=== PATIENT | female | born 1985 | race Caucasian/White ===

== ENCOUNTER 2019-09-08 17:42 | Observation (INO) ==
--- NOTE | 2019-09-08 18:04 | Emergency Department Note ---
Fall HPI - General Chief Complaint: Fall Stated Complaint: Fall 4' off a roof, deformity RLL Time Seen by Provider: 09/08/19 18:00 Source: patient, EMS Mode of arrival: ambulatory - History of Present Illness HPI Narrative: This patient is putting up [place] lights and jumped from about 3 feet from one room to another and injured her right tib-fib area. And apparently was de formed at the scene but she is in an Aircast at this time. - Related Data Home Medications Medication Instructions Recorded Confirmed traMADol [Ultram] 50 - 100 mg PO Q4HP PRN 05/31/16 01/31/18 DULoxetine [Cymbalta] 40 mg PO DAILY 09/11/17 01/31/18 Loratadine [Allerclear] 10 mg PO DAILY 09/11/17 01/31/18 Allergies Allergy/AdvReac Type Severity Reaction Status Date / Time Latex, Natural Rubber AdvReac Intermediate Rash Verified 09/08/19 17:48 hydromorphone [From Dilaudid] AdvReac Mild Nausea Verified 09/08/19 17:48 morphine AdvReac Mild Nausea Verified 09/08/19 17:48 Review of Systems All systems ED: reviewed and negative except as stated. Fall PMH - Past Medical History PMFSH Narrative: Medical History Strain of neck muscle (Acute) Temporomandibular dysfunction syndrome (Acute) Migraine (Acute) Cervical muscle strain (Acute) Medical history: Reports: other (coil placed near ovary- pt unsure on type, why, and has no details, TMJ) Psychiatric history: Reports: anxiety [employer] history: Reports: non-contributory - Social History smoking status: Never smoker Alcohol use: Reports: Unknown Drug use: Reports: none Course Vital Signs Pulse Rate 64 09/08/19 17:44 Respiratory Rate 27 H 09/08/19 17:44 Blood Pressure 136/109 09/08/19 17:44 Pulse Oximetry (%) 97 09/08/19 17:44 Pulse Rate 64 09/08/19 17:44 Respiratory Rate 27 H 09/08/19 17:44 Blood Pressure 136/109 09/08/19 17:44 Pulse Oximetry (%) 97 09/08/19 17:44 Fall - MDM Narrative Medical decision making narrative: This patient has a tib-fib fracture distal third of the tibia. It is posteriorly displaced. I discussed with Dr. Mayorga and will admit her to him and he will see her on the floor. - Radiology Data Radiology results reviewed: Yes I reviewed the patient's radiology results. Disposition Pt seen by BOOK COVERER/PA only: No Clinical Impression: Tibia/fibula fracture Disposition: Xfer As Outpt/Obs ([facility]) Condition: Good Referrals: Yessi Lee MD [Primary Care Provider] - Time of Disposition: 18:49
[2019-09-08] MEDS ORDERED: fentaNYL 100 MCG/2 ML VIAL IV ONE ×4 (18:07→19:30)
--- NOTE | 2019-09-08 18:52 | XRay Report ---
CLINICAL INFORMATION: Trauma. Fell from a roof TECHNIQUE: AP and lateral right tibia and fibula COMPARISON: None. FINDINGS: Mildly comminuted transversely oriented fractures of the distal right tibial and fibular diaphyses. There is lateral angulation deformity and mild lateral displacement of the fibula. No soft tissue gas or radiopaque foreign body. No evidence for open fracture IMPRESSION: Transversely oriented fractures of the distal right tibia and fibula with lateral angulation deformity Interpreted and Authenticated by: Harman Bautista 09/08/19
[2019-09-08] MEDS: LACTATED RINGERS 1,000 ML IV SCH (19:18)
[2019-09-08 19:40] LABS: ALT/SGPT 20 U/l (0-40); AST/SGOT 25 U/l (0-37); Alkaline Phosphatase 50 U/L (39-117); Bilirubin,Total 0.4 mg/dL (0.0-1.0); Blood Urea Nitrogen 8 mg/dl (6-20); Calcium 9.4 mg/dl (8.6-10.4); Carbon Dioxide 21 mmol/L (22-30); Chloride 100 mmol/L (96-108); Globulin 2.5 gm/dL (2.2-3.7); Glomerular Filtration Rate 114; Glucose 110 mg/dL (70-105)
[2019-09-08 19:41] LABS: Basophils # (Auto) 0 K/mcL (0.0-0.3); Basophils % (Auto) 0.3 % (0.0-2.0); Eosinophils # (Auto) 0 K/mcL (0.0-0.7); Eosinophils % (Auto) 0.1 % (0.0-7.0); Granulocytes % (Auto) 84.9 % (38.0-78.0); Hematocrit 41.1 % (36.0-48.0); Lymphocytes # (Auto) 1.4 K/mcL (1.5-4.8); Lymphocytes % (Auto) 9.1 % (15.5-49.0); Mean Cell Volume 89.2 fL (80.0-100.0); Mean Platelet Volume 7.9 fL (7.4-10.4); Monocytes # (Auto) 0.9 K/mcL (0.1-0.9); Monocytes % (Auto) 5.6 % (1.0-12.0); Platelet Count 276 K/mcL (140-440); RBC 4.61 M/mcL (4.00-5.20); WBC 15.4 K/mcL (4.5-11.0)
[2019-09-08] MEDS: HYDROCODONE/APAP 7.5/325MG TABLET PO PRN (20:55)
[2019-09-08] MEDS: METHOCARBAMOL 750 MG TABLET PO PRN (21:50)
[2019-09-08] MEDS: ONDANSETRON 4 MG ODT TABLET SL PRN (22:34)
[2019-09-08 22:37] LABS: Appearance,Urine CLEAR; Bilirubin,Urine NEG (NEG); Color,Urine STRAW; Culture Indicated,Urine NO; Glucose,Urine (UA) NEGATIVE (NEG); Ketones,Urine 5/TR mg/dL (NEG); Leukocyte Esterase,Urine NEG /uL (NEG); Nitrate,Urine NEG (NEG); Protein,Urine NEG (NEG); Urine Blood NEG mg/dL (<0.03); Urobilinogen,Urine NEG (NEG)
--- NOTE | 2019-09-08 23:28 | History and Physical Report ---
DATE OF ADMISSION: 09/08/2019 IDENTIFICATION: This 34-year-old female. CHIEF COMPLAINT: Right tibia and fibula fracture. HISTORY: This lady was hanging [place] lights. She sustained a fall, had immediate pain and deformity. She was transported by EMS [facility] where she was evaluated and felt to have an isolated fracture of the right tibia. Her pain is presently controlled but certainly has significant discomfort with any motion whatsoever. PAST MEDICAL HISTORY: Significant for apparently fibromyalgia. PAST SURGICAL HISTORY: Noncontributory. She has had a hysterectomy and a breast biopsy. MEDICATIONS: Include Cymbalta. ALLERGIES: She states an ALLERGY TO MORPHINE AND DILAUDID. This allergy stated is that the medications do not give her pain relief. REVIEW OF SYSTEMS: The entire 10-point review of systems is negative since she has generally been in a good state of health. PHYSICAL EXAMINATION: GENERAL: She is awake and alert. She is resting comfortably. HEAD: Normocephalic, atraumatic. EYES: PERRLA. Conjunctivae clear. ENT: Within normal limits. NECK: Her anterior neck supple and she does not have significant pain with range of motion. HEART: Regular. LUNGS: Clear. ABDOMEN: Benign. LOWER EXTREMITIES: Right lower extremity is carefully positioned. The skin is intact. She does have significant angulation, this has improved when we splint her. She seems to be grossly neurovascularly intact. IMAGING: Radiographs demonstrate a fracture of the tibia and fibula. This is at the junction of the middle and distal third of the diaphysis. IMPRESSION: Tibia/fibula fracture. PLAN: We have reviewed intramedullary rodding and operative fixation. The procedure risks, complications, limitation have been discussed. The patient is placed in a short leg splint for overnight. We will plan to proceed with surgery tomorrow. GDD:[email or web address] Job ID: [id number] Doc ID: [id number] Kendrick Mayorga MD
[2019-09-09] MEDS: HYDROCODONE/APAP 7.5/325MG TABLET PO PRN (00:15)
[2019-09-09] MEDS: LACTATED RINGERS 1,000 ML IV SCH ×4 (02:19→19:33)
[2019-09-09] MEDS ORDERED: HYDROmorphone PCA 30 MG/30 ML PCA.VIAL IV PRN (07:10)
[2019-09-09] MEDS: METHOCARBAMOL 750 MG TABLET PO PRN ×2 (07:41→20:02)
[2019-09-09] MEDS: ONDANSETRON 4 MG ODT TABLET SL PRN ×2 (07:53→11:59)
[2019-09-09] MEDS ORDERED: ACETAMINOPHEN 1,000 MG/100 ML BOTTLE IV PRN ×2 (08:32→18:30)
--- NOTE | 2019-09-09 10:43 | Procedure Note ---
Procedures - Nerve Block Nerve Block 1 Consent obtained: verbal consent Date of Procedure: 09/09/19 Time out performed: Yes Procedure: Ultrasound guided Needle Gauge Used: 20 (touhy) Injectate: bup 0.25% with lido Volume (ml): 15 Local anesthetic used: lidocaine 2% Amount of anesthesia used: 5 Side: right Nerve blocks: femoral Procedure successful: Yes Patient tolerated procedure: well, no complications Ultrasound Guided Nerve Procedure: Relevant anatomy identified (N,A,V), Local anesthetic: Spread visualized, Vascular puncture avoided Complications: none Additional comments: Preop pain consult for anesthesia pain uncontrolled on floor preop no elementary principal in hospital Anesthesia team assessed patient, talked with Dr Mayorga who authorizes preop PNB pt reassessed at time of consult, immediately before PNB, full NVMS intact Sedation for procedure run by me with ASA monitoring, Versed 2 mg, Propofol 40 mg, ketamine 50 mg. Without difficulty, no complications related to sedation. 2 PNBs performed, adductor canal (femoral) and sciatic (mid thigh). pt tolerated very well with mild sedation and O2 simple mask. good result, pt reports no pain now. No complications. distal NVM intact. Nerve Block 2 Consent obtained: verbal consent Date of Procedure: 09/09/19 Time out performed: Yes Procedure: nerve stimulation Needle Gauge Used: 20 Motor response lost at (mA): 72 Injectate: bup 0.25% Volume (ml): 15 Local anesthetic used: lidocaine 2% Amount of anesthesia used: 5 Side: right Nerve blocks: other (sciatic) Procedure successful: Yes Patient tolerated procedure: well Complications: none Additional comments: see note on nerve block 1 (adductor canal)
[2019-09-09] MEDS ORDERED: ONDANSETRON 4 MG/2 ML VIAL IV PRN ×3 (12:33→18:21)
[2019-09-09] MEDS ORDERED: PROMETHAZINE 25 MG/ML VIAL IV PRN ×2 (12:34→17:55)
[2019-09-09] MEDS ORDERED: ceFAZolin 2 GM in DEXTROSE 5% IN WATER 50 ML IV SCH (15:15)
--- NOTE | 2019-09-09 15:47 | Orthopedic Progress Note ---
Subjective Patient information: Note initiated : 09/09/19 at 3:44 pm Service Date, if different from initiated Date: [] Patient: Nguyen Beal 34 y/o F admitted on 09/08/19 for Right Tibial Rodding. Chief Complaint: [] Principal diagnosis: right tib/fib fx Objective Vital signs: Vital Signs Temp Pulse Pulse Resp BP BP BP 09/09/19 12:00 98.3 F 82 18 105/65 09/09/19 07:15 98.0 F 74 18 107/67 09/09/19 04:00 97.2 F 72 18 107/63 09/09/19 00:13 98.2 F 84 12 118/70 09/08/19 20:42 98.7 F 71 14 125/69 09/08/19 20:30 64 27 H 136/109 09/08/19 17:49 136/109 09/08/19 17:44 64 27 H 136/109 Pulse Ox 09/09/19 12:00 97 09/09/19 07:15 98 09/09/19 04:00 99 09/09/19 00:13 97 09/08/19 20:42 100 09/08/19 20:30 97 09/08/19 17:49 09/08/19 17:44 97 Intake and Output 09/09/19 09/09/19 09/09/19 05:59 13:59 21:59 Intake Total 812 1100 Output Total 2400 Balance -1588 1100 Intake: IV 812 1100 Lactated Ringers 1,000 ml @ 957 491 7207 mls/hr IV .Q6H40M GRISELDA Rx#: [id number] Oral 0 Output: Urine Catheter Amount 2400 Other: Urine Appearance Clear Uretheral (Cherry) Clear Urine Color Pale Uretheral (Cherry) Pale Intake & Output: Intake & Output 09/09/19 09/09/19 09/09/19 05:59 13:59 21:59 Intake Total 812 1100 Output Total 2400 Balance -1588 1100 Intake: IV 812 1100 Lactated Ringers 1,000 ml @ 529 603 7770 mls/hr IV .Q6H40M GRISELDA Rx#: [id number] Oral 0 Output: Urine Catheter Amount 2400 Other: Urine Appearance Clear Uretheral (Cherry) Clear Urine Color Pale Uretheral (Cherry) Pale - Labs CBC & BMP: 09/08/19 19:24 09/08/19 19:12 Labs: 09/08/19 09/08/19 19:24 19:12 Hgb 14.0 TNP Hct 41.1 TNP Assessment and Plan (1) Tibia/fibula fracture Status: Acute - Narrative A/P Narrative: Seen and discussed injury with patient along with family. Discussed treatment with recommendation for operative treatment with IM nail. Discussed risk/benefits and post operative course with patient and family. They agreed to proceed with surgery. Of noted, pre op exam not complete given nerve block prior to involvement in case. Compartments are soft and compressive otherwise.
[2019-09-09] MEDS ORDERED: PROPOFOL 200 MG/20 ML VIAL IV ONE (16:10)
[2019-09-09] MEDS ORDERED: fentaNYL 100 MCG/2 ML VIAL IV ONE (16:10)
[2019-09-09] MEDS ORDERED: GLYCOPYRROLATE 0.2 MG/ML VIAL IV ONE (16:10)
[2019-09-09] MEDS ORDERED: LIDOCAINE HCL/PF 100 MG/5 ML SYRINGE IV ONE (16:10)
[2019-09-09] MEDS ORDERED: DEXAMETHASONE 10 MG/ML VIAL IV ONE (16:10)
[2019-09-09] MEDS ORDERED: ONDANSETRON 4 MG/2 ML VIAL IV ONE (16:10)
[2019-09-09] MEDS ORDERED: BUPIVACAINE PF 0.25% 30 ML VIAL IJ ONE (16:10)
[2019-09-09] MEDS ORDERED: KETAMINE 100 MG/ML ML IV ONE (16:10)
[2019-09-09] MEDS ORDERED: MIDAZOLAM 2 MG/2 ML VIAL IV ONE (16:10)
[2019-09-09] MEDS ORDERED: ACETAMINOPHEN 1,000 MG/100 ML BOTTLE IV ONE (17:55)
[2019-09-09] MEDS ORDERED: LACTATED RINGERS 250 ML IV PRN (17:55)
[2019-09-09] MEDS ORDERED: diphenhydrAMINE 50 MG/ML VIAL IV PRN (17:55)
[2019-09-09] MEDS ORDERED: BENZOCAINE/MENTHOL 1 LOZENGE PO PRN ×2 (17:55→18:21)
[2019-09-09] MEDS ORDERED: IPRATROPIUM/ALBUTEROL 3 ML AMPUL.NEB NEB PRN (17:55)
[2019-09-09] MEDS ORDERED: NALOXONE HCL 0.4 MG/ML VIAL IV PRN (17:55)
[2019-09-09] MEDS ORDERED: HYDROmorphone 2 MG/ML VIAL IV PRN (17:55)
[2019-09-09] MEDS ORDERED: FLUMAZENIL 0.1 MG/ML ML IV PRN (17:55)
[2019-09-09] MEDS ORDERED: KETOROLAC 30 MG/ML VIAL IV PRN (17:55)
[2019-09-09] MEDS ORDERED: LACTATED RINGERS 1,000 ML IV SCH (18:00)
--- NOTE | 2019-09-09 18:20 | Brief Operative Note ---
Date of procedure: 09/09/19 Pre-op diagnosis: right tib/fib fracture Post-op diagnosis: same Procedure: ORIF with IM nail for right tibial fracture, closed treatment fibula fracture Grafts/Implants: Yes (rody t2 tibial nail [id number]) Anesthesia: GLMA Findings: reducible fracture, closed Complications: none Surgeon: Parth Moon Oracle Dba: Alan Negron Estimated blood loss (cc): 75 Tourniquet Time (Minutes): 0 Specimens Removed/Pathology: none sent Condition: stable Disposition: PACU
[2019-09-09] MEDS ORDERED: POLYETHYLENE GLYCOL 3350 17 GM PACKET PO PRN (18:21)
[2019-09-09] MEDS ORDERED: MAGNESIUM HYDROXIDE 30 ML ORAL.SUSP PO PRN (18:21)
[2019-09-09] MEDS ORDERED: FLEETS ADULT ENEMA PR PRN (18:21)
[2019-09-09] MEDS ORDERED: BISACODYL 10 MG SUPP.RECT PR PRN (18:21)
[2019-09-09] MEDS: MEPERIDINE 25 MG/ML SYRINGE IV PRN ×2 (18:31→18:46)
--- NOTE | 2019-09-09 18:55 | XRay Report ---
CLINICAL INFORMATION: Postsurgical follow-up TECHNIQUE: AP and cross table lateral right tibia and fibula COMPARISON: Preoperative tibia and fibula dated 09/08/2019 FINDINGS: Status post open reduction and internal fixation of right tibial and fibular fractures. There is an intramedullary nail in the right tibia. Alignment is anatomic. Comminuted distal right fibular diaphyseal fracture is again identified. Alignment is improved and essentially anatomic. There is diastases at the fracture line. IMPRESSION: Open reduction and internal fixation of right tibial and fibular fractures Interpreted and Authenticated by: Harman Bautista 09/09/19
--- NOTE | 2019-09-09 18:56 | XRay Report ---
CLINICAL INFORMATION: Right tibial and fibular fracture TECHNIQUE: Intraoperative fluoroscopy utilized for open reduction and internal fixation. 3.2 minutes fluoroscopy used. Multiple spot films obtained. IMPRESSION: Intraoperative fluoroscopy utilized for open reduction and internal fixation of right tibial and fibular fractures Interpreted and Authenticated by: Harman Bautista 09/09/19
[2019-09-09] MEDS: fentaNYL 100 MCG/2 ML VIAL IV PRN ×4 (19:00→19:09)
[2019-09-09] MEDS: oxyCODONE HCL 5 MG TABLET PO PRN (20:03)
[2019-09-09] MEDS: DOCUSATE SODIUM 100 MG CAPSULE PO SCH (21:35)
[2019-09-09] MEDS: SENNOSIDES 1 TABLET PO SCH (21:35)
[2019-09-09] MEDS: GABAPENTIN 300 MG CAPSULE PO SCH (21:36)
[2019-09-09] MEDS: 0.9 % SODIUM CHLORIDE 10 ML SYRINGE IV SCH (22:03)
[2019-09-09] MEDS: ceFAZolin 1 GM VIAL IV SCH (22:39)
[2019-09-10] MEDS: oxyCODONE HCL 5 MG TABLET PO PRN ×6 (02:09→22:09)
[2019-09-10] MEDS: ceFAZolin 1 GM VIAL IV SCH (06:07)
[2019-09-10] MEDS: 0.9 % SODIUM CHLORIDE 10 ML SYRINGE IV SCH ×3 (06:08→22:10)
[2019-09-10] MEDS: METHOCARBAMOL 750 MG TABLET PO PRN ×3 (06:08→18:36)
--- NOTE | 2019-09-10 08:14 | Operative Note ---
DATE OF OPERATION: 09/08/2019 PREOPERATIVE DIAGNOSIS: Right closed tib-fib shaft fractures. POSTOPERATIVE DIAGNOSIS: Right closed tib-fib shaft fractures. PROCEDURE PERFORMED: 1. Operative fixation with intramedullary nail of tibia fracture. 2. Nonoperative treatment of fibula fracture. SURGEON: Parth Moon MD BATTER OUT: Alan Negron PA-C. This provider's expertise and technical skill were required throughout the case. The PA assisted with preoperative coordination, intraoperative retraction, wound closure, dressing and splint application, as well as postoperative documentation and care coordination. ANESTHESIA: General via LMA. IV FLUIDS: 1 liter lactated ringer. ESTIMATED BLOOD LOSS: Less than 100 mL TOURNIQUET TIME: Not applicable. ANTIBIOTICS: 2 grams Ancef. IMPLANTS: Arthur T2 tibial nail 10 x 330 mm and 4 5.0 statically interlock screws. PATHOLOGY/LAB: None. INTRAOPERATIVE COMPLICATIONS: None. INDICATIONS: The patient is a 34-year-old female who yesterday fell while putting up [place] lights from 4 foot, resulting in tibial shaft and fibular shaft fractures and she presented to the emergency department at [facility]. She was seen by Dr. Mayorga who reduced the fractures, splinted and subsequently admitted the patient overnight. We will plan for definitive fixation today. Due to unavailability he transferred care to tx. Prior to transfer, he okayed a peripheral nerve block because her pain was not being controlled. Upon evaluation, complete neurovascular status cannot be completed due to this; however, compartments are soft and compressible with a well perfused foot. I discussed the surgery as well as the risks and benefits, and they wished to proceed in that fashion. DESCRIPTION OF PROCEDURE: The patient was taken to the preoperative holding area where site was verified and marked with the patient's input, then taken back to the operating room where she underwent successful anesthesia via LMA. Her right lower extremity was cleaned with ChloraPrep or Hibiclens wipe and a padded tourniquet was placed on the proximal thigh. Then a small lateral hip bump was placed. The contralateral side was secured with all bony prominences adequately padded. She was then prepped and draped in the usual sterile fashion with ChloraPrep. Surgical timeout was performed to verify patient identity, correct procedure being performed, and correct extremity being operated on, and everybody was in agreement. Initially, utilizing a small radiolucent triangle, made a trans patellar tendon. Created an incision from the inferior border of patella to the superior border of the tibial tubercle. Dissection was taken down to the peritenon of the patellar tendon, creating medial and lateral flaps, then utilizing a clean #15 blade incised the peritenon and again created medial and lateral flaps to later repair this peritenon layer. The central portion of the patellar tendon was incised in one complete step to ensure not to crosscut patellar tendon fibers. The fat pad anteriorly was swept posteriorly. A guide pin was placed at the anterior articular margin as well as just on the upslope of the lateral tibial spine and verified on both AP and lateral. We placed this intramedullary. Then, utilizing a tissue protector and opening reamer, reamed open the canal to gain access to the canal tibial shaft. At this point, we placed a ball tip guidewire that was bent to the level of the fracture. At this point, we reduced the fracture with a [id number] clamp and manual manipulation to near anatomic position. This guidepin was then centered over the talus in the center-center position on AP and lateral. Once completed, we measured and it measured 330 mm. At this point, we reamed up to size 10.5 with good chatter at the isthmus and the fracture remained reduced. Once this was complete, we placed our tibial nail, placed a distal interlock screw initially in the AP direction under direct visualization and ensured the artery and nerve were not compromised. This was then utilized to backslap to compress the fracture and two interlocking screws were then placed proximally and locked fashion. One additional interlock screws was placed medial lateral distally. Used the more proximal hole to stay out of the syndesmosis. Again, AP, lateral of fractured ankle and knee were all taken to ensure the screws were proper length and within the nail itself and the fracture was near anatomically reduced. The fibula had lined up relatively well with significant comminution; however, this is likely going to heal. Once this was complete, all wounds proximally were irrigated with IrriSept. The percutaneous holes for the interlock screws were irrigated. The peritenon was closed with 2-0 vicryls, subcutaneous tissues with 3-0 Vicryl and skin closed with 3-0 nylon in running fashion. The remainder was closed in layered fashion as well with Vicryl and lydia. The leg was cleaned and dried. Xeroform was placed along with fluffs, Webril, Petr wrap and a Cam boot. The patient awoke from anesthesia, transferred to PACU in stable condition. I should note that the compartments were soft at the end of the case as well with a warm and well perfused foot. POSTOPERATIVE PLAN: The patient will be admitted back to the floor for postoperative pain control as well as physical therapy. DLW:sabra Job ID: [id number] Doc ID: [id number] Parth Moon MD MTDD
--- NOTE | 2019-09-10 08:29 | Orthopedic Progress Note ---
Subjective Patient information: Note initiated : 09/10/19 at 8:26 am Service Date, if different from initiated Date: [] Patient: Nguyen Beal 34 y/o F admitted on 09/08/19 for Right Tibial Rodding. Chief Complaint: Right lower extremity pain. Principal diagnosis: right closed tib/fib fx Interval history: Pt is a 34 yo female POD #1 following ORIF right tibia/fibula fracture with IM nail with Dr. Moon. Has been up to pivot transfer to the bedside commode but no ambulation. Denies SOB, CP, N/V, abd pain, fevers/chills. Admits to pain in the RLE. Denies new complaints this AM. Pertinent ROS: negative except per HPI. Objective Vital signs: Vital Signs Temp Pulse Resp BP Pulse Ox 09/10/19 07:33 98.7 F 82 16 103/67 97 09/10/19 04:33 98.4 F 87 14 99/61 99 09/09/19 23:43 98.2 F 81 12 104/68 99 09/09/19 22:09 79 103/68 100 09/09/19 21:09 77 112/71 100 09/09/19 20:39 80 112/75 100 09/09/19 20:08 82 135/92 100 09/09/19 19:54 78 133/84 100 09/09/19 19:49 100 09/09/19 19:39 67 129/78 100 09/09/19 19:24 97.8 F 98 H 28 H 139/93 100 09/09/19 19:17 87 16 130/79 95 09/09/19 19:05 93 H 15 134/83 97 09/09/19 18:55 95 H 16 155/88 93 09/09/19 18:45 106 H 18 144/87 100 09/09/19 18:40 101 H 18 146/86 100 09/09/19 18:35 115 H 21 138/73 100 09/09/19 18:30 97.5 F 108 H 22 117/80 100 09/09/19 12:00 98.3 F 82 18 105/65 97 Intake and Output 09/09/19 09/10/19 09/10/19 21:59 05:59 13:59 Intake Total 2050 500 Output Total 2100 350 100 Balance -50 150 -100 Intake: IV 100 Oral 500 IV - Manual Only 1950 Output: Urine Catheter Amount 1200 Uretheral (Cherry) 1200 Void Amount 800 350 100 Estimated Blood Loss 100 Other: Urine Color Straw Urine Odor Normal Weight 194 lb 8 oz Intake & Output: Intake & Output 09/09/19 09/10/19 09/10/19 21:59 05:59 13:59 Intake Total 2050 500 Output Total 2100 350 100 Balance -50 150 -100 Weight 194 lb 8 oz Intake: IV 100 Oral 500 IV - Manual Only 1950 Output: Urine Catheter Amount 1200 Uretheral (Cherry) 1200 Void Amount 800 350 100 Estimated Blood Loss 100 Other: Urine Color Straw Urine Odor Normal Dressing: Yes clean, Yes dry, Yes intact Weight bearing status: as tolerated Range of motion: no restrictions Neurological exam IM: Yes alert, Yes oriented X3, Yes neurovascular intact Extremities exam IM: No calf tenderness, Yes normal capillary refill, Yes normal inspection, Yes Foot pink and warm, Yes neurovascular intact (RLE compartments remain soft and compressible) - Labs CBC & BMP: 09/08/19 19:24 09/08/19 19:12 Labs: 09/08/19 09/08/19 19:24 19:12 Hgb 14.0 TNP Hct 41.1 TNP Assessment and Plan (1) Tibia/fibula fracture Pt is a 34 yo female POD #1 s/p ORIF right tibia/fibula fx. -DC IV Tylenol, will switch to Percocet today and alternate with the oxycodone. -PT/OT--WBAT with RLE in boot. -regular diet -prophy: ambulation, ankle pumps, SCDs. -dispo: home possible dc tomorrow if no new issues and pain controlled once on orals. Status: Acute
[2019-09-10] MEDS: ENOXAPARIN 40 MG/0.4 ML SYRINGE SQ SCH (09:08)
[2019-09-10] MEDS: oxyCODONE/APAP 5/325MG TABLET PO PRN ×4 (09:08→22:10)
[2019-09-10] MEDS: GABAPENTIN 300 MG CAPSULE PO SCH ×4 (09:09→20:03)
[2019-09-10] MEDS: DOCUSATE SODIUM 100 MG CAPSULE PO SCH ×2 (09:09→20:03)
[2019-09-10] MEDS: LACTATED RINGERS 1,000 ML IV SCH ×2 (09:52→21:33)
[2019-09-10] MEDS ORDERED: IBUPROFEN 800 MG TABLET PO ONE (10:01)
[2019-09-10] MEDS: SENNOSIDES 1 TABLET PO SCH (20:03)
[2019-09-11] MEDS: oxyCODONE HCL 5 MG TABLET PO PRN ×7 (00:02→12:45)
[2019-09-11] MEDS: oxyCODONE/APAP 5/325MG TABLET PO PRN ×7 (00:02→12:44)
[2019-09-11] MEDS: METHOCARBAMOL 750 MG TABLET PO PRN ×2 (02:03→08:02)
[2019-09-11] MEDS: 0.9 % SODIUM CHLORIDE 10 ML SYRINGE IV SCH (05:52)
--- NOTE | 2019-09-11 07:44 | Discharge Summary ---
Providers - Providers Patient information: Note initiated : 09/11/19 at 7:39 am Service Date, if different from initiated Date: [] Patient: Nguyen Beal 34 y/o F admitted on 09/08/19 for Right Tibial Rodding. Chief Complaint: [] Date of admission: 09/08/19 Discharge date: 09/11/19 Attending physician: [facility] Hospital[facility] Hospital Course: Patient admitted on 08 September for closed right tibia/fibula shaft fractures. Splinted overnight night with operative fixation the following day. Pain control was difficult initially but improved significantly by POD 2. She worked with therapy while inpatient. She tolerated an oral diet, voiding spontaneously and was hemodynamically stable. Her incisions were clean and dry with dressing changes. She was neurovascularly intact with soft compartments. Discharge diagnosis: Right tibia and fibula shaft fractures Reason for admission: Right tibia/fibula fractures Procedures: Operative fixation of tibia fracture with IM nail. Complications: None apparent. Exam - Exam Incision draining: No Incision red: No Incision swollen: No Incision inflamed: No Clean and dry: Yes Weight bearing status: full Range of motion: 0-90 degrees at the knee and Dorsiflexion of 5 degrees. Ortho Discharge Plan - General - Patient Instructions Diet: Regular Diet Activity: weight bearing as tolerated Dressing Care: May shower in 2 days, Other (When showering do not submerge the incisions in water. Do not apply ointments or lotions to the incision. Do not shave your legs until incision completely healed.) Additional Instructions: Work on the same exercises you were doing as inpatient with therapy. Bend and straighten your knee (no restriction), move your ankle up and down, tight and relax your thigh and butt muscles. - Problem Maintenance (1) Tibia/fibula fracture Status: Acute Qualifiers: Encounter type: initial encounter Fracture type: closed Laterality: right Qualified Code(s): S82.201A - Unspecified fracture of shaft of right tibia, initial encounter for closed fracture; S82.401A - Unspecified fracture of shaft of right fibula, initial encounter for closed fracture - Follow Up Plan Follow Up Appointments: Yessi Lee MD [Primary Care Provider] - ( ) Alan Negron PA-C [Physician Art Model] - Disposition: Home, Self-Care Prognosis: Good Rehab Potential: Good I certify that the patient requires SNF services: No Overall status at discharge: patient is progressing back to baseline - Orders For Discharge Prescriptions: Docusate Sodium [Colace] 100 mg PO BID #60 cap Prescription Printed Enoxaparin [Lovenox] 40 mg SQ DAILY #30 syringe Prescription Printed Gabapentin [Neurontin] 300 mg PO Q8 #60 cap Prescription Printed oxyCODONE/APAP [Percocet 5-325 mg] 1 - 2 tab PO Q4HP PRN #50 tab PRN Reason: Per Pain Protocol Prescription Printed Methocarbamol [Robaxin] 750 mg PO Q6HP PRN #30 tab PRN Reason: Muscle Spasm Prescription Printed oxyCODONE HCL [Roxicodone] 5 - 10 mg PO Q4HP PRN #50 tab PRN Reason: Per Pain Protocol Prescription Printed Pending Studies Resuscitation Status Full Code Diet Regular Diet Start MonSep 09 1824 Docusate Sodium (Colace) 100 mg PO BID [facility] Last Admin: 09/10/19 20:03 Dose: 100 mg Documented by: Admin: 09/10/19 09:09 Dose: 100 mg Documented by: Admin: 09/09/19 21:35 Dose: Not Given Documented by: CAROLA Enoxaparin Sodium (Lovenox) 40 mg SQ DAILY [facility] Last Admin: 09/10/19 09:08 Dose: 40 mg Documented by: ERICK Gabapentin (Neurontin) 300 mg PO QID [facility] Last Admin: 09/10/19 20:03 Dose: 300 mg Documented by: Admin: 09/10/19 16:53 Dose: 300 mg Documented by: Admin: 09/10/19 12:56 Dose: 300 mg Documented by: Admin: 09/10/19 09:09 Dose: 300 mg Documented by: Admin: 09/09/19 21:36 Dose: Not Given Documented by: CAROLA Lactated Ringer's (Lactated Ringers) 1,000 mls @ 75 mls/hr IV .[id number] [facility] Last Admin: 09/10/19 21:33 Dose: Not Given Documented by: Admin: 09/10/19 09:52 Dose: Not Given Documented by: Infusion: 09/10/19 08:49 Dose: 0 mls/hr Documented by: Admin: 09/09/19 19:29 Dose: 75 mls/hr Documented by: CAROLA Methocarbamol (Robaxin) 750 mg PO Q6HP PRN PRN Reason: Muscle Spasm Last Admin: 09/11/19 02:03 Dose: 750 mg Documented by: Admin: 09/10/19 18:36 Dose: 750 mg Documented by: Admin: 09/10/19 12:10 Dose: 750 mg Documented by: Admin: 09/10/19 06:08 Dose: 750 mg Documented by: Admin: 09/09/19 20:02 Dose: 750 mg Documented by: Admin: 09/09/19 07:41 Dose: 750 mg Documented by: Admin: 09/08/19 21:50 Dose: 750 mg Documented by: CAROLA Morphine Sulfate (Morphine) 0 mg IV Q3HP PRN; Protocol PRN Reason: Per Pain Protocol Last Admin: 09/10/19 12:05 Dose: 4 mg Documented by: Admin: 09/10/19 09:23 Dose: 2 mg Documented by: Admin: 09/10/19 07:29 Dose: 2 mg Documented by: Admin: 09/10/19 02:09 Dose: 4 mg Documented by: CAROLA Ondansetron HCl (Zofran Odt) 4 mg SL Q4HP PRN PRN Reason: Nausea And Vomiting Last Admin: 09/09/19 11:59 Dose: 4 mg Documented by: [email or web address] Admin: 09/09/19 07:53 Dose: 4 mg Documented by: Admin: 09/08/19 22:34 Dose: 4 mg Documented by: CAROLA Oxycodone HCl (Roxicodone) 0 mg PO Q4HP PRN; Protocol PRN Reason: Per Pain Protocol Last Admin: 09/11/19 05:52 Dose: 5 mg Documented by: Admin: 09/11/19 04:08 Dose: 5 mg Documented by: Admin: 09/11/19 02:03 Dose: 5 mg Documented by: Admin: 09/11/19 00:02 Dose: 5 mg Documented by: Admin: 09/10/19 22:09 Dose: 5 mg Documented by: Admin: 09/10/19 20:05 Dose: 5 mg Documented by: Admin: 09/10/19 16:50 Dose: 10 mg Documented by: Admin: 09/10/19 10:54 Dose: 10 mg Documented by: Admin: 09/10/19 06:08 Dose: 10 mg Documented by: Admin: 09/10/19 02:09 Dose: 10 mg Documented by: Admin: 09/09/19 20:03 Dose: 10 mg Documented by: CAROLA Oxycodone/Acetaminophen (Percocet 5-325 Mg) 1 - 2 tab PO Q4HP PRN; Protocol PRN Reason: Per Pain Protocol Last Admin: 09/11/19 05:52 Dose: 1 tab Documented by: Admin: 09/11/19 04:07 Dose: 1 tab Documented by: Admin: 09/11/19 02:02 Dose: 1 tab Documented by: Admin: 09/11/19 00:02 Dose: 1 tab Documented by: Admin: 09/10/19 22:10 Dose: 1 tab Documented by: Admin: 09/10/19 20:03 Dose: 2 tab Documented by: Admin: 09/10/19 12:55 Dose: 2 tab Documented by: Admin: 09/10/19 09:08 Dose: 1 tab Documented by: ERICK Promethazine HCl (Phenergan) 12.5 mg IV Q6HP PRN PRN Reason: Nausea And Vomiting Last Admin: 09/09/19 19:46 Dose: 12.5 mg Documented by: CAROLA Senna (Senokot) 2 tab PO HS GRISELDA Last Admin: 09/10/19 20:03 Dose: 2 tab Documented by: Admin: 09/09/19 21:35 Dose: Not Given Documented by: CAROLA Sodium Chloride (Saline Flush) 10 ml IV Q8 GRISELDA Last Admin: 09/11/19 05:52 Dose: 10 ml Documented by: Admin: 09/10/19 22:10 Dose: 10 ml Documented by: Admin: 09/10/19 16:49 Dose: 10 ml Documented by: Admin: 09/10/19 06:08 Dose: Not Given Documented by: Admin: 09/09/19 22:03 Dose: Not Given Documented by: CAROLA Shift Summary 09/11/19 04:00 Shift Summary by Alannah Gomez Per H&P This lady was hanging Anjali lights. She sustained a fall, had immediate pain and deformity. She was transported by EMS [facility] where she was evaluated and felt to have an isolated fracture of the right tibia. Her pain is presently controlled but certainly has significant discomfort with any motion whatsoever. We have reviewed intramedullary rodding and operative fixation. The procedure risks, complications, limitation have been discussed. The patient is placed in a short leg splint for overnight. We will plan to proceed with surgery tomorrow. (Surg was done on 09/09/19 Pain is controlled on 5mg oxy and 5/325 mg Percocet. basically she is getting a Percocet 10/325 every 2 hours with Robaxin 750mg every 6 hours. Please make sure she gets Robaxin on discharge. Pt is ambulating to and from bathroom with SBA. Has walking boot in room that she can use if she chooses. WBAT. Pt has been pleasant and cooperative with cares. Pain has been much more controlled this evening. Will update with verbal report. Initialized on 09/11/19 04:00 - END OF NOTE
[2019-09-11] MEDS: GABAPENTIN 300 MG CAPSULE PO SCH ×2 (10:03→13:21)
[2019-09-11] MEDS: ENOXAPARIN 40 MG/0.4 ML SYRINGE SQ SCH (10:03)
[2019-09-11] MEDS: DOCUSATE SODIUM 100 MG CAPSULE PO SCH (10:03)
== END 2019-09-11 13:50 | disposition home or self-care (01) ==
LOC: ED 17:42 → MEDSUR 17:42 → OBSVTOIN 20:18 → MEDSUR 20:23
PROVIDERS: ADMIT Orthopaedic Surgery Orthopaedic Surgery of the Spine; ATTEND Orthopaedic Surgery